=== PATIENT | female | born 1990 | race Hispanic/Latino ===

== ENCOUNTER 2019-07-24 08:46 | Day surgery (SDC) | payer MEDICAID, OTHER ==
--- NOTE | 2019-07-23 13:00 | NUR ---
MEDS DR. MACIAS INFORMED PT HASN'T TAKEN ATENOLOL FOR 2 MONTHS, MESSAGE LEFT WITH SABRINA
[2019-07-23 15:56] LABS: BASOPHILS % (AUTO) 0.5 % (0.0-5.0); EOSINOPHILS % (AUTO) 1.6 % (0.0-8.0); HEMATOCRIT 35.7 % (36-48); LYMPHOCYTES % (AUTO) 26.3 % (21.0-51.0); MEAN CORPUSCULAR HGB CONC 33.6 g/dL (32.0-36.0); MEAN CORPUSCULAR VOLUME 89.3 fL (79-99); MONOCYTES % (AUTO) 7.7 % (3.0-13.0); NEUTROPHILS % (AUTO) 63.6 % (40.0-77.0); PLATELET COUNT (AUTO) 278 K/uL (130-400); RED CELL DISTRIBUTION WIDTH 11.9 % (11.0-15.5); WHITE BLOOD COUNT (AUTO) 7.7 K/uL (4.8-10.8)
[2019-07-23 16:10] LABS: INR 0.99 (0.85-1.15); PARTIAL THROMBOPLASTIN TIME 27.3 SEC (26.3-35.5); PROTHROMBIN TIME 10.7 SEC (9.6-11.6)
[2019-07-23 16:11] VITALS: BP 116/73
[2019-07-23 16:14] LABS: ALBUMIN 4.3 g/dL (3.5-5.0); BILIRUBIN,TOTAL 0.6 mg/dL (0.2-1.0); CREATININE 0.6 mg/dL (0.5-1.5); POTASSIUM 3.3 mmol/L (3.5-5.1); TOTAL PROTEIN, SERUM 7.8 g/dL (6.0-8.3)
--- NOTE | 2019-07-23 16:21 | NUR ---
Labs low k+ level reported to dr. garcía no further orders given
[2019-07-24] VITALS (17 sets, daily range): BP systolic 100–142; BP diastolic 58–87
[~2019-07-24] VITALS: Ht 162.6 cm; Wt 61.1 kg
[~2019-07-24 08:46] MED LIST: ATEN25TA PO; CEFUROXIME SODIUM 1.5 GM VIAL IVP SCH
[2019-07-24] MEDS ORDERED: SODIUM CHLORIDE 0.9% 1000ML 1,000 ML IV ONE (10:43)
[2019-07-24] MEDS ORDERED: CEFAZOLIN SODIUM 1 GM VIAL ONE ×2 (10:44→16:50)
[2019-07-24] MEDS: CEFAZOLIN SODIUM 1 GM VIAL IVP SCH ×2 (11:00→16:40)
[2019-07-24] MEDS ORDERED: SUCCINYLCHOLINE CHLORIDE 20 MG/ML 10 ML VIAL ONE (16:07)
[2019-07-24] MEDS ORDERED: PROPOFOL 10 MG/ML 20ML VIAL IV ONE (16:07)
[2019-07-24] MEDS ORDERED: MIDAZOLAM HCL 1 MG/ML 2ML VIAL ONE (16:07)
[2019-07-24] MEDS ORDERED: FENTANYL CITRATE PF 50 MCG/1 ML 2ML VIAL ONE (16:07)
[2019-07-24] MEDS ORDERED: TRAM50TA4 PO (16:39)
[2019-07-24] MEDS ORDERED: ROCURONIUM 10MG/1ML SYR 10 MG/ML ML ONE (16:41)
[2019-07-24] MEDS ORDERED: BUPIVACAINE/PF 0.25% 30ML VIAL IJ ONE (16:49)
[2019-07-24] MEDS ORDERED: LIDOCAINE HCL 1% 20 ML VIAL ONE (16:49)
[2019-07-24] MEDS ORDERED: ONDANSETRON HCL 4 MG/2 ML VIAL ONE (17:14)
[2019-07-24] MEDS ORDERED: DEXAMETHASONE SOD PHOSPHATE 10MG/ML 1ML VIAL ONE (17:14)
[2019-07-24] MEDS ORDERED: NEOSTIGMINE 5MG/5ML SYR IV ONE (17:42)
[2019-07-24] MEDS ORDERED: GLYCOPYRROLATE 1 MG/5 ML SYRINGE ONE (17:42)
[2019-07-24] MEDS ORDERED: TRAMADOL HCL 50 MG TABLET PO PRN ×2 (18:00)
[2019-07-24] MEDS ORDERED: MEPERIDINE-PF 25 MG/ML SYG ONE (18:21)
== END 2019-07-24 19:46 | disposition home or self-care (01) ==
LOC: DAH 08:46
PROVIDERS: ATTEND Thoracic Surgery (Cardiothoracic Vascular Surgery)
DX: Z45.02 Encounter for adjustment and management of automatic implantable cardiac defibrillator (principal); Z11.59 Encounter for screening for other viral diseases; Q21.3 Tetralogy of Fallot; Z91.040 Latex allergy status; Z98.890 Other specified postprocedural states; Z79.899 Other long term (current) drug therapy; Z79.01 Long term (current) use of anticoagulants
CPT/HCPCS: 33264; 36415; 71046; 80053; 85025; 85610; 85730; 93005; A4213; A4215; A4221; A4222; A4223; A4335; A4663; A6207; C1721; G0168; J0330; J0690 ×2; J1100; J1644; J2175; J2250; J2405; J2704; J2710; J3010; J3490 ×2; J7030 ×3; J7040; J7120; U0003

== ENCOUNTER 2019-10-13 06:07 | Day surgery (SDC) | payer MEDICAID ==
[2019-10-10 10:54] LABS: BASOPHILS % (AUTO) 0.6 % (0.0-5.0); EOSINOPHILS % (AUTO) 2.9 % (0.0-8.0); HEMATOCRIT 37.2 % (36-48); LYMPHOCYTES % (AUTO) 29.9 % (21.0-51.0); MEAN CORPUSCULAR HEMOGLOBIN 30.5 pg (27.0-33.0); MEAN CORPUSCULAR HGB CONC 34.1 g/dL (32.0-36.0); MEAN CORPUSCULAR VOLUME 89.4 fL (79-99); MONOCYTES % (AUTO) 6.8 % (3.0-13.0); NEUTROPHILS % (AUTO) 59.5 % (40.0-77.0); PLATELET COUNT (AUTO) 259 K/uL (130-400); RED BLOOD CELL COUNT(AUTO) 4.16 MIL/uL (4.00-5.50); RED CELL DISTRIBUTION WIDTH 11.9 % (11.0-15.5); WHITE BLOOD COUNT (AUTO) 6.3 K/uL (4.8-10.8)
[2019-10-10 11:02] LABS: CREATININE 0.5 mg/dL (0.5-1.5); POTASSIUM 4.2 mmol/L (3.5-5.1)
[2019-10-10 11:48] VITALS: BP 109/72
[2019-10-10 12:21] LABS: INR 0.94 (0.85-1.15); PROTHROMBIN TIME 10.2 SEC (9.6-11.6)
[~2019-10-13] VITALS: Ht 162.6 cm; Wt 60.7 kg
[2019-10-13] VITALS (11 sets, daily range): BP systolic 100–112; BP diastolic 57–72
[~2019-10-13 06:07] MED LIST changes: -CEFUROXIME SODIUM 1.5 GM VIAL IVP SCH; +SODIUM CHLORIDE 0.9% 1000ML 1,000 ML IV SCH
[2019-10-13] MEDS ORDERED: MIDAZOLAM HCL 1 MG/ML 2ML VIAL ONE ×6 (07:22→09:50)
[2019-10-13] MEDS ORDERED: MEPERIDINE-PF 25 MG/ML SYG ONE ×6 (07:23→09:50)
[2019-10-13] MEDS ORDERED: LIDOCAINE HCL 2% 20ML ONE ×2 (07:23→07:45)
[2019-10-13] MEDS ORDERED: HEPARIN SODIUM 1000UNIT/ML 10ML VIAL ONE (08:42)
--- NOTE | 2019-10-13 11:20 | NUR ---
Pt received Pt was received from cath lab tech accompanied by nurse and tech. Pt drowsy but arousable. Has dressing with gauze and opsite to left groin, no bleeding, no hematoma no s/s of infection. O2 sat at 91%; applied o2 at 2L/min. Report was received from nurse. Pt appears comfortable in no distress.
--- NOTE | 2019-10-13 13:06 | NUR ---
Case management at bedside.
--- NOTE | 2019-10-13 14:40 | NUR ---
PT PENDING LIFE VEST TO ARRIVE. I HAVE LET DR CAMPUZANO KNOW THAT ARRANGEMENTS ARE BEING MADE TO HAVE THAT DONE NAKIA. AT PRESENT TIME I HAVE SPOKEN TO JULIANNE VEGA AND SHE LET ME KNOW THAT PROCESS IS IN MOTION AND SHE KNOWS ABOUT PT ALREADY. I HAVE ALSO BEEN IN CONTACT WITH JULIAN HERNANDEZ CASE MANGT. PT IS RESTING QUIETLY IN STRETCHER AND DENIES ANY DISTRESS. NO HEMATOMA TO RT GROIN. I LET HER KNOW WHAT IS HAPPENING WITH LIFE VEST. NO ACUTE DISTRESS NOTED
--- NOTE | 2019-10-13 16:12 | NUR ---
NO LIFE VEST OF YET. I CALLED JULIANNE REP. AUTHORIZATION PENDING. PT INFORMED OF DELAY. NO ACUTE DISTRESS.
--- NOTE | 2019-10-13 18:24 | NUR ---
ZOLL LIFE VEST APPLIED AND EDUCATION [place] ZOLL REP. JANET.. PRINTED AND VERBAL DISCHARGE . INSTRUCTIONS GIVEN. VERBALIZES UNDERSTANDING. STABLE IN NO DISTRESS.
--- NOTE | 2019-10-13 18:53 | NUR ---
DISCHARGED HOME WITH LIFE VEST ON. NO ACUTE DISTRESS. TO CAR VIA WHEELCHAIR
--- NOTE | 2019-10-14 08:12 | NUR ---
DC PLAN RECEIVED ORDER FOR LIFE VEST. SENT TITLE [address] CAMPUZANO OFFICE TO SIGN RECEIVED BACK AND SENT TO JULIANNE. SPOKE TO PATIENT GOT NILES SIGNED FOR DME. INFO SENT TO JULIANNE AND REP SABRINA NOTIFIED. AT 1700 RECEIVED THAT IT HAS BEEN APPROVED PENDING DELIVERY. LET SECURITY KNOW TO LET REP IN. TRIED TO NOTIFY HOUSE WELL NO ANSWER. LET DIRECTOR KNOW. Addendum: 10/14/19 at 0815 by JULIAN MONTANO RN CM Amended: Links added.
== END 2019-10-13 18:53 | disposition home or self-care (01) ==
LOC: DAH 06:07
PROVIDERS: ATTEND Internal Medicine Cardiovascular Disease
DX: Q24.9 Congenital malformation of heart, unspecified (principal); Q21.0 Ventricular septal defect; I49.8 Other specified cardiac arrhythmias; I49.02 Ventricular flutter; I45.10 Unspecified right bundle-branch block; Z95.810 Presence of automatic (implantable) cardiac defibrillator; Z79.01 Long term (current) use of anticoagulants; Z98.890 Other specified postprocedural states
CPT/HCPCS: 36415; 80048; 84703; 85025; 85610; 85730; 93620; A4215; A4216; A4221; A4222; A4223 ×3; A4606; A4663; C1730 ×4; C1894 ×4; J1644 ×2; J2175 ×6; J2250 ×6; J3490 ×2; J7030 ×2; 99156; 99157

== ENCOUNTER 2019-12-22 07:25 | Observation (INO) | payer MEDICAID ==
[2019-12-18 10:37] LABS: BASOPHILS % (AUTO) 0.8 % (0.0-5.0); EOSINOPHILS % (AUTO) 7.4 % (0.0-8.0); HEMATOCRIT 38.4 % (36-48); LYMPHOCYTES % (AUTO) 28.3 % (21.0-51.0); MEAN CORPUSCULAR HEMOGLOBIN 30.2 pg (27.0-33.0); MEAN CORPUSCULAR HGB CONC 33.1 g/dL (32.0-36.0); MEAN CORPUSCULAR VOLUME 91.4 fL (79-99); NEUTROPHILS % (AUTO) 55.3 % (40.0-77.0); PLATELET COUNT (AUTO) 214 K/uL (130-400); RED CELL DISTRIBUTION WIDTH 12.4 % (11.0-15.5); WHITE BLOOD COUNT (AUTO) 6.5 K/uL (4.8-10.8)
[2019-12-18 10:44] LABS: CREATININE 0.5 mg/dL (0.5-1.5); POTASSIUM 3.7 mmol/L (3.5-5.1)
[2019-12-18 10:52] LABS: INR 0.92 (0.85-1.15)
[2019-12-19 10:12] VITALS: BP 119/69
[2019-12-22] VITALS (9 sets, daily range): BP systolic 94–119; BP diastolic 56–70
[~2019-12-22] VITALS: Ht 160 cm; Wt 63.0 kg
[~2019-12-22 07:25] MED LIST changes: +AEC81 PO; +CEFAZOLIN SODIUM 1 GM VIAL IVP SCH
[2019-12-22] MEDS ORDERED: CEFAZOLIN SODIUM 1 GM VIAL ONE (09:35)
[2019-12-22] MEDS ORDERED: BUPIVACAINE/PF 0.25% 30ML VIAL IJ ONE (09:35)
[2019-12-22] MEDS ORDERED: MEPERIDINE-PF 25 MG/ML SYG ONE ×9 (09:36→12:23)
[2019-12-22] MEDS ORDERED: MIDAZOLAM HCL 1 MG/ML 2ML VIAL ONE ×9 (09:36→12:23)
[2019-12-22] MEDS ORDERED: LIDOCAINE HCL 1% MDV 50ML VIAL ONE (09:36)
[2019-12-22] MEDS ORDERED: IODIXANOL 320 MG/ML 100 ML VIAL ONE (11:28)
[2019-12-22] MEDS ORDERED: THROMBIN-JMI 5000 UNIT/VIAL TP ONE (12:04)
[2019-12-22] MEDS ORDERED: FENTANYL CITRATE PF 50 MCG/1 ML 2ML VIAL ONE (12:44)
[2019-12-22] MEDS ORDERED: ONDANSETRON HCL 4 MG/2 ML VIAL IV PRN (13:30)
[2019-12-22] MEDS ORDERED: ACETAMINOPHEN-CODEINE 300/30MG TAB PO PRN (13:30)
--- NOTE | 2019-12-22 13:35 | NUR ---
RECEIVED FROM [employer] MACHINE OPERATOR VIA BED ACCOMPANIED BY Edwin MOORE, RN AND Cecile THAPA RN. PT. DROWSY BUT AROUSABLE. OPENS EYES TO VERBAL COMMAND, BUT CLOSES THEM SOON AFTER RESPONSE. DENIES ANY C/O SOB, DENIES ANY CURRENT PAIN. LEFT UPPER CHEST WITH PRESSURE DRSG IN PLACE, D/I; ARM SLING IN PLACE TO LEFT ARM. INSTRUCTED ON STRICT BR X4HRS PER MD ORDERS, VERBALIZED UNDERSTANDING. COMPLETE ASSESSMENT DONE, REFER TO FLOWSHEET. CALL LIGHT WITHIN REACH, VERBALIZED ABILITY TO USE. BED LOW, SIDE RAILS UP.
[2019-12-22] MEDS ORDERED: ACETAMINOPHEN 325 MG TAB PO PRN (17:15)
[2019-12-22] MEDS ORDERED: ACETAMINOPHEN 325 MG TAB ONE (17:31)
--- NOTE | 2019-12-22 19:39 | NUR ---
RECEIVED PATIENT IN BED, AAOX4, NO ACUTE DISTRESS NOTED. PATIENT LEFT ARM IN SLING, POST ICD LEAD IMPLANTATION AND GENERATOR REPLACEMENT. DRESSING TO LEFT CHEST WALL IS DRY AND INTACT. SHE STATES THE TYLENOL SHE RECEIVED HELP WITH PAIN. AT THIS TIME, SHE HAS C/O NAUSEA. ZOFRAN 4 MG IV ADMINISTERED PER PRN ORDERS. POC DISCUSSED WITH PATIENT. CALL OSORIO IS WITHIN REACH, WILL CONT TO MONITOR CLOSELY. TELE WITH SR BBB 70.
[2019-12-23 03:41] VITALS: BP 107/63
[2019-12-23 08:00] VITALS: BP 116/66
[2019-12-23] MEDS ORDERED: ATENOLOL 25 MG TABLET PO SCH (09:00)
[2019-12-23] MEDS ORDERED: ASPIRIN 81 MG EC TAB PO SCH (09:00)
[2019-12-23] MEDS ORDERED: ACET1TAB25 PO (10:27)
[2019-12-23 11:50] VITALS: BP 100/59
[2019-12-23 16:05] VITALS: BP 105/61
--- NOTE | 2019-12-23 17:05 | NUR ---
HL'S REMOVED, CATHETERS INTACT. LEFT UPPER CHEST DRESSING CHANGED ORDERED; PT. TOLERATED W/O C/O. NINETEEN LAURA NOTED TO WELL APPROXIMATED INCISION; NO BLEEDING OR HEMATOMA NOTED. PT.'S BOYFRIEND AT BEDSIDE DURING DRSG CHANGE. INSTRUCTED ONCE AGAIN ON LEFT ARM RESTRICTIONS/PRECAUTIONS, PT. AND BOYFRIEND VERBALIZED MUTUAL UNDERSTANDING. DISCHARGE INSTRUCTIONS GIVEN, VERBALIZED MUTUAL UNDERSTANDING.
--- NOTE | 2019-12-23 17:30 | NUR ---
DISCHARGED HOME VIA W/C WITH BELONGINGS ACCOMPANIED BY Moris COLEMAN, PCP AND PT.'S BOYFRIEND.
== END 2019-12-23 17:39 | disposition home or self-care (01) ==
LOC: DAH 07:25 → DAHIP 07:26 → DAH 07:26 → 4DH 14:02
PROVIDERS: ADMIT Internal Medicine Cardiovascular Disease; ATTEND Internal Medicine Cardiovascular Disease
DX: T82.110A Breakdown (mechanical) of cardiac electrode, initial encounter (principal); I47.2 Ventricular tachycardia; I45.10 Unspecified right bundle-branch block; I49.5 Sick sinus syndrome; Q24.9 Congenital malformation of heart, unspecified; Y84.8 Other medical procedures as the cause of abnormal reaction of the patient, or of later complication, without mention of misadventure at the time of the procedure; Y92.89 Other specified places as the place of occurrence of the external cause
CPT/HCPCS: 33249; 36415; 71045; 80048; 84703; 85025; 85610; 85730; 96374; A4215; A4216; A4221; A4222; A4223 ×3; A4606; A4663; C1721; C1769; C1895; G0378 ×18; J0690; J2175 ×9; J2250 ×9; J2405; J3010; J3490 ×3; J7030; Q9967; 99156; 99157

== ENCOUNTER → 2022-08-15 | Outpatient (CLI) | payer MEDICAID ==
[~2022-08-15] MED LIST changes: +ACET-2079 PO; -CEFAZOLIN SODIUM 1 GM VIAL IVP SCH; -SODIUM CHLORIDE 0.9% 1000ML 1,000 ML IV SCH
[2022-08-15 16:30] LABS: CREATININE 0.5 mg/dL (0.5-1.5); MAGNESIUM 1.9 mg/dL (1.80-2.40); POTASSIUM 3.8 mmol/L (3.5-5.1)
== END | disposition home or self-care (01) ==
LOC: LAB 11:56
PROVIDERS: ATTEND Internal Medicine Cardiovascular Disease
DX: I47.20 Ventricular tachycardia, unspecified (principal); I42.2 Other hypertrophic cardiomyopathy
CPT/HCPCS: 36415; 80048; 83735

== ENCOUNTER 2023-07-13 18:08 | Observation (INO) | payer MEDICAID ==
[~2023-07-13] VITALS: Ht 160 cm; Wt 57.7 kg
[2023-07-13] MEDS: ADENOSINE 6MG VIAL IV ONE (18:24)
[2023-07-13 18:32] LABS: BASOPHILS # (AUTO) 0.08 K/uL (0.00-0.20); BASOPHILS % (AUTO) 0.7 % (0.0-5.0); EOSINOPHILS # (AUTO) 0.06 K/uL (0.00-0.70); EOSINOPHILS % (AUTO) 0.5 % (0.0-8.0); IMMATURE GRANULOCYTE ABSOLUTE 0.03 K/uL (0-1); LYMPHOCYTES # (AUTO) 2.6 K/uL (1.0-4.8); MEAN CORPUSCULAR HEMOGLOBIN 31.1 pg (27.0-33.0); MEAN CORPUSCULAR HGB CONC 34.9 g/dL (32.0-36.0); MONOCYTES # (AUTO) 0.9 K/uL (0.1-1.0); MONOCYTES % (AUTO) 7.4 % (3.0-13.0); NEUTROPHILS # (AUTO) 8.2 K/uL (1.8-7.7); NEUTROPHILS % (AUTO) 69.1 % (40.0-77.0); PLATELET COUNT (AUTO) 410 K/uL (130-400); RED BLOOD CELL COUNT(AUTO) 4.83 MIL/uL (4.00-5.50); RED CELL DISTRIBUTION WIDTH 12.1 % (11.0-15.5); WHITE BLOOD COUNT (AUTO) 11.8 K/uL (4.8-10.8)
[2023-07-13 18:43] LABS: INR 0.96 (0.85-1.15); PROTHROMBIN TIME 11.4 SEC (9.6-11.6)
[2023-07-13 18:45] LABS: PARTIAL THROMBOPLASTIN TIME 26.7 SEC (26.3-35.5)
[2023-07-13 18:48] LABS: CREATININE 0.8 mg/dL (0.5-1.0); POTASSIUM 3.1 mmol/L (3.5-5.1)
[2023-07-13 18:54] LABS: ALBUMIN 4.5 g/dL (3.5-5.0); BILIRUBIN,TOTAL 0.8 mg/dL (0.2-1.0); TOTAL PROTEIN, SERUM 8.3 g/dL (6.0-8.3)
[2023-07-13 18:57] LABS: B-TYPE NATRIURETIC PEPTIDE 8 pg/mL (0-100)
[2023-07-13] MEDS: POTASSIUM BICARB/CIT AC 25 MEQ TABLET.EFF PO STA (19:10)
[2023-07-13] MEDS ORDERED: POTASSIUM CHLORIDE 20MEQ/100ML 100 ML IV PRN (22:30)
[2023-07-13] MEDS ORDERED: ONDANSETRON 4MG INJ IV PRN (22:30)
[2023-07-13] MEDS ORDERED: KCL 20 MEQ ERTAB PO PRN (22:30)
[2023-07-13] MEDS: MAGNESIUM 2GM PREMIX 50ML 50 ML IV PRN (22:41)
[2023-07-13] MEDS: POTASSIUM CHLORIDE 10% ELIXIR 20 MEQ/15 ML UDCUP PO PRN (22:41)
[2023-07-13 23:40] VITALS: BP 119/76; PULSE 80; RESP 18
[2023-07-14] MEDS: ATENOLOL 25 MG TABLET PO ONE (01:08)
[2023-07-14 02:12] VITALS: O2SAT 97
[2023-07-14 04:00] VITALS: BP 94/59; PULSE 70; RESP 16
[2023-07-14 04:07] LABS: BASOPHILS # (AUTO) 0.06 K/uL (0.00-0.20); BASOPHILS % (AUTO) 0.6 % (0.0-5.0); EOSINOPHILS # (AUTO) 0.06 K/uL (0.00-0.70); EOSINOPHILS % (AUTO) 0.6 % (0.0-8.0); HEMATOCRIT 35.1 % (36-48); IMMATURE GRANULOCYTE ABSOLUTE 0.04 K/uL (0-1); LYMPHOCYTES # (AUTO) 2.9 K/uL (1.0-4.8); LYMPHOCYTES % (AUTO) 26.8 % (21.0-51.0); MEAN CORPUSCULAR HEMOGLOBIN 30.4 pg (27.0-33.0); MEAN CORPUSCULAR HGB CONC 34.5 g/dL (32.0-36.0); MEAN CORPUSCULAR VOLUME 88.2 fL (79-99); MONOCYTES # (AUTO) 0.8 K/uL (0.1-1.0); MONOCYTES % (AUTO) 7.7 % (3.0-13.0); NEUTROPHILS # (AUTO) 6.9 K/uL (1.8-7.7); NEUTROPHILS % (AUTO) 63.9 % (40.0-77.0); PLATELET COUNT (AUTO) 317 K/uL (130-400); RED BLOOD CELL COUNT(AUTO) 3.98 MIL/uL (4.00-5.50); RED CELL DISTRIBUTION WIDTH 12.2 % (11.0-15.5); WHITE BLOOD COUNT (AUTO) 10.8 K/uL (4.8-10.8)
[2023-07-14 04:15] LABS: INR 1.37 (0.85-1.15); PROTHROMBIN TIME 15.8 SEC (9.6-11.6)
[2023-07-14 04:41] LABS: ALBUMIN 3.7 g/dL (3.5-5.0); BILIRUBIN,TOTAL 0.5 mg/dL (0.2-1.0); CREATININE 0.6 mg/dL (0.5-1.0); MAGNESIUM 2.2 mg/dL (1.80-2.40); THYROID STIMULATING HORMONE 1.2 uIU/mL (0.36-3.74); TOTAL PROTEIN, SERUM 7.1 g/dL (6.0-8.3)
[2023-07-14 08:00] VITALS: BP 110/74; PULSE 64; RESP 18; O2SAT 97
[2023-07-14] MEDS: FAMOTIDINE 20MG TAB PO SCH (08:27)
[2023-07-14] MEDS: ASPIRIN 81 MG EC TAB PO SCH (08:27)
[2023-07-14 12:00] VITALS: BP 110/77; PULSE 72; RESP 18
[2023-07-14] MEDS: ATENOLOL 25 MG TABLET PO SCH (12:33)
[2023-07-14 16:00] VITALS: BP 107/70; PULSE 70; RESP 18
== END 2023-07-14 19:58 | disposition home or self-care (01) ==
LOC: EDH 18:08 → EDHIP 18:09 → UNDOADMOB 22:24 → 4AH 23:38
PROVIDERS: ADMIT Internal Medicine; ATTEND Internal Medicine
DX: I47.10 Supraventricular tachycardia, unspecified (principal); E87.6 Hypokalemia; I25.810 Atherosclerosis of coronary artery bypass graft(s) without angina pectoris; R00.2 Palpitations; I49.1 Atrial premature depolarization; I45.10 Unspecified right bundle-branch block; D75.839 Thrombocytosis, unspecified; R73.9 Hyperglycemia, unspecified; R74.8 Abnormal levels of other serum enzymes; R74.01 Elevation of levels of liver transaminase levels; Z95.810 Presence of automatic (implantable) cardiac defibrillator; Z95.1 Presence of aortocoronary bypass graft; Z79.899 Other long term (current) drug therapy; Z98.890 Other specified postprocedural states; Z86.2 Personal history of diseases of the blood and blood-forming organs and certain disorders involving the immune mechanism; Z91.040 Latex allergy status
CPT/HCPCS: 96365; 99285; 82550; 83735 ×2; 84484 ×2; 80053 ×2; 83880; 85025 ×2; 85610 ×2; 85730 ×2; 36415 ×2; 71045; 93005 ×3; 84443; G0378 ×22; J3490; J3475; J0153